=== PATIENT | male | born 1980 | race Caucasian/White ===

== ENCOUNTER 2019-06-09 22:18 | Emergency (ER) | payer BC ==
--- NOTE | 2019-06-09 22:49 | EDM.PDOC ---
ED HPI GENERAL MEDICAL PROBLEM - General Chief Complaint: Neck Problem Stated Complaint: neck problem Time Seen by Provider: 06/09/19 22:40 Source of Information: Reports: Patient - History of Present Illness INITIAL COMMENTS - FREE TEXT/NARRATIVE: The patient is a 38-year-old male with no significant medical history who presents to the ER complaining of neck pain. He states that he woke up a couple of days ago and has been having severe neck pain worse if he tries to move his head in any direction. When he tries to move his head he feels like his neck "seizes up" and he occasionally gets tingling and shooting sensations down either arm down to his elbow. Ibuprofen, Tylenol and ibuprofen and Tylenol together have not helped with the pain. Pain is worse with moving his neck is mentioned, or trying to move from a lying to a standing position where he needs to support his head. He denies any weakness, he denies any difficulty walking, no trauma, no fevers, no other acute complaints. neck Pain Score (Numeric/FACES): 9 - Related Data Allergies Allergy/AdvReac Type Severity Reaction Status Date / Time No Known Allergies Allergy Verified 06/09/19 22:26 Home Meds: Home Meds FLUoxetine HCl [Fluoxetine] 60 mg PO DAILY 06/09/19 [History] Hydroxyurea [Siklos] 0 mg PO BID 06/09/19 [History] Past Medical History Psychiatric History: Reports: Anxiety Hematologic History: Reports: Polycythemia Oncologic (Cancer) History: Reports: Other (See Below) Other Oncologic History: polycythemia vera - Infectious Disease History Infectious Disease History: Reports: Chicken Pox - Past Surgical History Oncologic Surgical History: Reports: None Social & Family History - Family History Family Medical History: Noncontributory - Tobacco Use Smoking Status *Q: Never Smoker Second Hand Smoke Exposure: No - Caffeine Use Caffeine Use: Reports: None - Alcohol Use Days Per Week of Alcohol Use: 7 Number of Drinks Per Day: 2 Total Drinks Per Week: 14 - Recreational Drug Use Recreational Drug Use: No ED ROS GENERAL - Review of Systems Review Of Systems: See Below (Positive for neck pain, negative for fevers, negative for weakness, negative for difficulty walking, all other Positives and pertinent negatives as per HPI. All other pertinent systems were reviewed and are negative) ED EXAM, UPPER BACK/NECK PAIN - Physical Exam Exam: See Below Text/Narrative:: Constitutional: No acute distress, Non-toxic appearance, sitting straight up with his head straight HEENT: Normocephalic, Atraumatic, EOMI Neck: Limited range of motion secondary to pain, tenderness along the bilateral paraspinal cervical musculature and trapezius, no midline tenderness, trachea is midline, no masses, Respiratory: No respiratory distress, No tachypnea Cardiovascular: Deferred Gastrointestinal: Deferred Genital / Urinary: Deferred Musculoskeletal: All four extremities present and atraumatic Back: FROM Integument: Warm, Dry, Color is ethnicity appropriate, No rash. Neuro: Alert, Awake, oriented x3, motor strength equal in the bilateral upper and lower extremities at 5/5, normal gait, no focal deficits noted Psych: Affect, Judgement, mood normal Course - Vital Signs Text/Narrative:: Nothing per history or exam sounds concerning as there is not been any trauma, no motor weakness, no difficulty walking, etc. Patient will be given a dose of Sage 10 mg while in the ER and a small prescription for Sage 5/325 mg tablets a total of 10 to take 1-2 every 4-6 hours as needed for pain and this will get him through the weekend where he can follow-up with his primary care physician if needed. Last Recorded V/S: Last Vital Signs Temp 35.9 C L 06/09/19 22:20 Pulse 98 06/09/19 22:20 Resp 17 06/09/19 22:20 BP 130/97 H 06/09/19 22:20 Pulse Ox 98 06/09/19 22:20 - Orders/Labs/Meds Orders: Active Orders 24 hr Category Date Time Status Acetaminophen/HYDROcodone [Sage 325-5 MG] Med 06/09/19 22:43 Once 2 tab PO ONETIME ONE Departure - Departure Time of Disposition: 22:49 Disposition: Home, Self-Care 01 Condition: Good Clinical Impression: Neck pain - Discharge Information Referrals: Magaly Estrella PA [Primary Care Provider] - Additional Instructions: Alternate between warm heat and ice, whichever makes it feel better. Use the Sage as prescribed if ibuprofen is also not helping your pain. Most of these pains last anywhere from several days to week. Follow-up with your primary care physician if symptoms are not improving as expected or for any other concerns. Sepsis Event Note - Evaluation Sepsis Screening Result: No Definite Risk - Focused Exam Vital Signs: Vital Signs Temp Pulse Resp BP Pulse Ox 06/09/19 22:20 35.9 C L 98 17 130/97 H 98 Date Exam was Performed: 06/09/19 Time Exam was Performed: 22:43 - My Orders Last 24 Hours: My Active Orders 06/09/19 22:43 Acetaminophen/HYDROcodone [Sage 325-5 MG] 2 tab PO ONETIME ONE - Assessment/Plan Last 24 Hours: My Active Orders 06/09/19 22:43 Acetaminophen/HYDROcodone [Sage 325-5 MG] 2 tab PO ONETIME ONE
[2019-06-09] MEDS: Acetaminophen/HYDROcodone 325-5 MG Tab PO ONE (22:52)
== END 2019-06-09 23:10 | disposition home or self-care (01) ==
LOC: MW.ED 22:18
DX: M54.2 Cervicalgia (principal); F41.9 Anxiety disorder, unspecified; Z79.899 Other long term (current) drug therapy
CPT/HCPCS: 99283; A9270; 99282

== ENCOUNTER 2022-04-02 21:59 | Emergency (ER) | payer BC, OTHER ==
[2022-04-02] MEDS ORDERED: OLANZapine 5 MG Tab PO ONE (22:53)
[2022-04-02] MEDS ORDERED: LORazepam 1 MG Tab PO ONE (22:53)
== END 2022-04-02 23:10 | disposition home or self-care (01) ==
LOC: MW.ED 21:59
DX: F12.129 Cannabis abuse with intoxication, unspecified (principal)
CPT/HCPCS: 99283; A9270